=== PATIENT | female | born 2005 ===

== ENCOUNTER 2024-09-06 05:33 | Inpatient (IN) | payer BC ==
[2024-09-06] MEDS ORDERED: Carboprost 250 MCG/ML AMP IM PRN (05:57)
[2024-09-06] MEDS ORDERED: hydrALAZINE 20 MG/ML VIAL SLOW IVP PRN ×2 (05:57→20:05)
[2024-09-06] MEDS ORDERED: Lidocaine 1% (PF) 30 ML VIAL SC PRN (05:57)
[2024-09-06] MEDS ORDERED: Ondansetron PF 4 MG/2 ML Vial IVP PRN ×3 (05:57→20:05)
[2024-09-06] MEDS ORDERED: Methylergonovine 0.2 MG/ML VIAL IM PRN ×2 (05:57→20:05)
[2024-09-06] MEDS ORDERED: Acetaminophen 500 MG TAB PO PRN (05:57)
[2024-09-06] MEDS ORDERED: Docusate 100 MG CAP PO PRN (05:57)
[2024-09-06] MEDS ORDERED: Diphenoxylate HCl/Atropine Tablet PO PRN ×2 (05:57)
[2024-09-06] MEDS ORDERED: Oxytocin 30 units/NS 500 ML 500 ML IV SCH ×2 (05:57→20:15)
[2024-09-06] MEDS ORDERED: HYDROcodone/Acetaminophen 5/325 mg Tablet PO PRN ×2 (05:57)
[2024-09-06] MEDS ORDERED: fentaNYL 50 mcg/mL 1 mL Vial SLOW IVP PRN (05:57)
[2024-09-06] MEDS ORDERED: Promethazine HCl 25 MG/ML VIAL IM PRN ×2 (05:57→14:52)
[2024-09-06 06:35] LABS: Hematocrit 39.8 % (34.9-44.5); Hemoglobin 13.4 g/dL (12.0-15.5); Mean Corpuscular HGB CONC 33.7 g/dL (32.0-36.0); Mean Corpuscular Hemoglobin 28.7 pg (27.0-33.0); Mean Corpuscular Volume 85.2 fL (81.6-98.3); Mean Platelet Volume 11.1 fL (7.4-10.4); Platelet Count 236 10x3/uL (150-450); RBC Distribution Width 14.6 % (11.5-14.5); Red Blood Cell (RBC) Count 4.67 10x6/uL (3.90-5.03); White Blood Cell (WBC) Count 15.1 10x3/uL (3.5-10.5)
[2024-09-06 06:44] VITALS: BMI 36.6
[2024-09-06 07:04] LABS: HBsAg Index 0.19 S/CO (0-0.99); HIV (1/2) Antibody/Antigen Non-Reactive (NonReactive); HIV 1/2 INDEX 0.07 S/CO (<1.00); Hep B Surf Ag - L&D Non-Reactive S/CO (NonReactive); Syphilis Antibody Nonreactive (Nonreactive); Syphilis Antibody Index 0.03 S/CO (<1.00 Non-Reactive)
[2024-09-06] MEDS: Oxytocin 30 units/NS 500 ML 500 ML IV SCH ×2 (07:15→20:10)
[2024-09-06] MEDS: Penicillin G Potassium 5 MILL.UNITS in Sodium Chloride 0.9% 100 ML IVPB SCH (07:15)
[2024-09-06] MEDS: Penicillin G 2.5 MILL.units 2.5 MILL.UNITS in Premix 1 BAG IVPB SCH (07:16)
[2024-09-06] MEDS: Lactated Ringer's 1,000 ML IV SCH (07:16)
[2024-09-06] MEDS: fentaNYL/Ropivacaine Epidural 100 ML ONE (14:45)
[2024-09-06] MEDS ORDERED: Moisturizing Cream (Eucerin) 113 GM JAR TOP PRN (14:52)
[2024-09-06] MEDS ORDERED: Naloxone HCl 0.4 mg/ml Vial IVP PRN ×2 (14:52)
[2024-09-06] MEDS ORDERED: diphenhydrAMINE 50 MG/ML VIAL IVP PRN (14:52)
[2024-09-06] MEDS ORDERED: Acetaminophen 325 MG TAB PO PRN (14:52)
[2024-09-06] MEDS ORDERED: Lactated Ringer's 500 ML IV PRN (14:52)
[2024-09-06] MEDS ORDERED: ePHEDrine Sulfate 50 MG/10 ML VIAL SLOW IVP PRN (14:52)
[2024-09-06] MEDS ORDERED: Communication Order-Pharmacy FS SCH (15:00)
[2024-09-06] MEDS ORDERED: fentaNYL 2 mcg/Ropivacaine 0.2% Epidural 100 ML CADD EPIDURAL SCH (15:00)
[2024-09-06] MEDS ORDERED: Zolpidem Tartrate 5 MG TAB PO PRN (20:05)
[2024-09-06] MEDS ORDERED: Preparation H Ointment 28 GM TUBE PR PRN (20:05)
[2024-09-06] MEDS ORDERED: Milk Of Magnesia 30 ML UDCUP PO PRN (20:05)
[2024-09-06] MEDS ORDERED: Bisacodyl 10 MG SUPP PR PRN (20:05)
[2024-09-06] MEDS ORDERED: diphenhydrAMINE 25 MG CAP PO PRN (20:05)
[2024-09-06] MEDS ORDERED: Misoprostol 200 MCG TAB VAG PRN (20:05)
[2024-09-06] MEDS: Misoprostol 200 MCG TAB PR PRN (20:44)
[2024-09-06] MEDS: Ibuprofen 800 MG TAB PO PRN (20:53)
[2024-09-06] MEDS: Docusate 100 MG CAP PO SCH (22:56)
[2024-09-06] MEDS: Benzocaine-Menthol 82.5 ML CAN TOP PRN (22:56)
[2024-09-06] MEDS: Witch Hazel 100 PAD JAR TOP PRN (23:00)
[2024-09-07] MEDS: HYDROcodone/Acetaminophen 5/325 mg Tablet PO PRN ×2 (00:01→08:18)
[2024-09-07] MEDS: Ibuprofen 800 MG TAB PO SCH (00:11)
[2024-09-07 05:17] LABS: Hematocrit 35.8 % (34.9-44.5); Hemoglobin 11.9 g/dL (12.0-15.5); Mean Corpuscular HGB CONC 33.2 g/dL (32.0-36.0); Mean Corpuscular Hemoglobin 28.8 pg (27.0-33.0); Mean Corpuscular Volume 86.7 fL (81.6-98.3); Mean Platelet Volume 11.4 fL (7.4-10.4); Platelet Count 213 10x3/uL (150-450); RBC Distribution Width 14.7 % (11.5-14.5); Red Blood Cell (RBC) Count 4.13 10x6/uL (3.90-5.03); White Blood Cell (WBC) Count 19.5 10x3/uL (3.5-10.5)
[2024-09-07] MEDS: Boostrix 0.5 ML (Tdap) VIAL (>/=7 yrs of age) IM ONE (07:33)
[2024-09-07] MEDS: Ferrous Sulfate 325 MG TAB PO SCH (08:18)
[2024-09-07] MEDS: Prenatal Vitamin 1 TAB PO SCH (08:18)
[2024-09-08 07:47] VITALS: BP 134/86; TEMP 97.4
== END 2024-09-08 12:15 | disposition home or self-care (01) | DRG 807 ==
LOC: CSHLD 05:33 → CSHPP 21:45
PROVIDERS: ADMIT Obstetrics & Gynecology; ATTEND Obstetrics & Gynecology
PROC: 10E0XZZ Delivery of Products of Conception, External Approach (ICD-10-PCS; principal; 2024-09-06)
PROC: 0HQ9XZZ Repair Perineum Skin, External Approach (ICD-10-PCS; 2024-09-06)
DX: O99.824 Streptococcus B carrier state complicating childbirth (principal); Z37.0 Single live birth; Z3A.39 39 weeks gestation of pregnancy; O70.0 First degree perineal laceration during delivery; O43.893 Other placental disorders, third trimester
CPT/HCPCS: 36415; 36416; 51702; 85027; 86780; 86850; 86900; 86901; 87340; 87389; J2540; J2590; J7120